=== PATIENT | male | born 1950 | race Caucasian/White ===

== ENCOUNTER → 2017-05-04 | Outpatient (CLI) | payer OTHER ==
[2013-05-27 12:16] VITALS: BP 172/98
[2017-05-04 12:06] LABS: STOOL FOR WBC POSITIVE (NEGATIVE)
[2017-05-04 12:23] LABS: CRYPTOSPORIDIUM PARVUM ANTIGEN NEGATIVE (NEGATIVE); GIARDIA LAMBLIA ANTIGEN NEGATIVE (NEGATIVE)
== END ==
LOC: LAB 11:16
PROVIDERS: ATTEND Internal Medicine
DX: R19.7 Diarrhea, unspecified (principal)
CPT/HCPCS: 83630; 87045; 87328; 87329; 87336; 87427; 87493; 87899

== ENCOUNTER 2017-06-22 09:35 | Day surgery (SDC) | payer OTHER ==
[2017-06-22] MEDS ORDERED: D5 LR 1000 ML 1,000 ML IV ONE (09:56)
[2017-06-22] MEDS ORDERED: DIPRIVAN VIAL 20 ML ONE (11:37)
[2017-06-22 12:30] VITALS: BP 122/78
== END 2017-06-22 12:15 | disposition home or self-care (01) ==
LOC: SURG1 09:35
PROVIDERS: ATTEND Internal Medicine Gastroenterology
PROC: 0DBE8ZX Excision of Large Intestine, Via Natural or Artificial Opening Endoscopic, Diagnostic (ICD-10-PCS; principal; 2017-06-22 12:00)
PROC: 0DJD8ZZ Inspection of Lower Intestinal Tract, Via Natural or Artificial Opening Endoscopic (ICD-10-PCS; principal; 2017-06-22 12:00)
DX: Z12.11 Encounter for screening for malignant neoplasm of colon (principal); R19.4 Change in bowel habit; K57.30 Diverticulosis of large intestine without perforation or abscess without bleeding; K64.0 First degree hemorrhoids
CPT/HCPCS: A4217; J3490; J7120